=== PATIENT | female | born 1975 | race Caucasian/White ===

== ENCOUNTER 2018-02-24 09:10 | Outpatient (REF) | payer MEDICAID, SELFPAY ==
[2018-02-24 21:44] LABS: HCT 42.1 % (36.0-46.0); HGB 13.4 g/dL (12.0-15.5); Mean Corp. HGB Concentration 31.8 g/dL (32.0-36.0); Mean Corpuscular Hemoglobin 28.7 pg (27.0-33.0); Mean Corpuscular Volume 90.1 fL (80-95); Mean Platelet Volume 9.6 fL (8.0-11.0); Platelet Count 342 x1000/uL (130-400); RBC 4.67 m/cumm (4.00-5.20); RBC Distribution Width 13.6 % (11.7-14.6)
[2018-02-24 21:55] LABS: Hemoglobin A1C 5.8 % (4.5-6.2)
[2018-02-24 22:07] LABS: ALT 19 U/L (12-78); AST 17 U/L (15-37); Albumin 4.1 g/dL (3.4-5.0); Alkaline Phosphatase 42 U/L (46-116); BUN 12 mg/dL (7-18); Bilirubin, Total 0.3 mg/dL (0.2-1.0); CREATININE 0.87 mg/dL (0.55-1.02); Calcium 8.6 mg/dL (8.5-10.1); Chloride 104 mmol/L (98-107); Cholesterol 273 mg/dL (50-200); Glucose 100 mg/dL (70-100); HDL Cholesterol 77 mg/dL (40-60); LDL CHOLESTEROL 186 mg/dL (<100); Potassium 4.2 mmol/L (3.5-5.1); Sodium 141 mmol/L (136-145); TSH 1.03 uIU/mL (0.358-3.74); Total Protein 7.3 g/dL (6.4-8.2); Triglyceride 68 mg/dL (30-150)
== END 2018-02-24 09:30 ==
LOC: NCHCN 09:10
PROVIDERS: PCP Naturopath; Visit Provider Family Medicine
DX: E78.5 Hyperlipidemia, unspecified (principal); R73.09 Other abnormal glucose; E03.9 Hypothyroidism, unspecified; M25.50 Pain in unspecified joint
CPT/HCPCS: 80053; 80061; 83721; 85027; 83036; 84443

== ENCOUNTER 2018-05-06 12:36 | Outpatient (REF) | payer MEDICAID, SELFPAY ==
[2018-05-06 20:59] LABS: ALT 19 U/L (12-78); AST 13 U/L (15-37); Albumin 4.1 g/dL (3.4-5.0); Alkaline Phosphatase 41 U/L (46-116); Anion Gap 7.4 mmol/L (3-11); BUN 8 mg/dL (7-18); Bilirubin, Total 0.5 mg/dL (0.2-1.0); CO2 29.6 mmol/L (21.0-32.0); CREATININE 0.95 mg/dL (0.55-1.02); Calcium 9.5 mg/dL (8.5-10.1); Chloride 102 mmol/L (98-107); Glucose 96 mg/dL (70-100); Potassium 3.9 mmol/L (3.5-5.1); Sodium 139 mmol/L (136-145); Total Protein 7.3 g/dL (6.4-8.2)
[2018-05-08 08:02] LABS: Vitamin D 25 Total 31.1 ng/ml (30-100)
== END 2018-05-06 12:56 ==
LOC: LBN 12:36
PROVIDERS: PCP Naturopath; Visit Provider Internal Medicine Rheumatology
DX: E83.52 Hypercalcemia (principal)
CPT/HCPCS: 80053; 82306

== ENCOUNTER 2018-05-06 12:47 | Outpatient (REF) | payer MEDICAID, SELFPAY | END 2018-05-06 13:07 | LOC: NCHCN 12:47 | PROVIDERS: PCP Naturopath; Visit Provider Family Medicine | DX: N89.8 Other specified noninflammatory disorders of vagina (principal) | CPT/HCPCS: 87077; 87086; 87186; 87480; 87510; 87660 ==

== ENCOUNTER 2019-03-17 09:25 | Outpatient (REF) | payer MEDICAID, SELFPAY ==
[2019-03-17 22:01] LABS: HCT 39.6 % (36.0-46.0); HGB 12.5 g/dL (12.0-15.5); Mean Corp. HGB Concentration 31.6 g/dL (32.0-36.0); Mean Corpuscular Hemoglobin 28.3 pg (27.0-33.0); Mean Corpuscular Volume 89.8 fL (80-95); Mean Platelet Volume 9.6 fL (8.0-11.0); Platelet Count 357 x1000/uL (130-400); RBC 4.41 m/cumm (4.00-5.20); RBC Distribution Width 12.9 % (11.7-14.6); White Blood Cell Count 5.53 k/cumm (4.4-10.8)
[2019-03-17 22:07] LABS: Hemoglobin A1C 5.7 % (4.5-6.2)
[2019-03-17 22:13] LABS: ALT 24 U/L (14-59); AST 12 U/L (15-37); Alkaline Phosphatase 36 U/L (46-116); Anion Gap 8.1 mmol/L (3-11); BUN 10 mg/dL (7-18); Bilirubin, Total 0.2 mg/dL (0.2-1.0); CO2 27.9 mmol/L (21.0-32.0); CREATININE 0.79 mg/dL (0.55-1.02); Calcium 9.3 mg/dL (8.5-10.1); Calculated LDL 132 mg/dL; Chloride 105 mmol/L (98-107); Cholesterol 214 mg/dL (50-200); Glucose 103 mg/dL (70-100); HDL Cholesterol 70 mg/dL (40-60); Potassium 4.2 mmol/L (3.5-5.1); Sodium 141 mmol/L (136-145); TSH (W/Ref FT4) 0.66 uIU/mL (0.36-3.74); Total Protein 6.7 g/dL (6.4-8.2); Triglyceride 60 mg/dL (30-150)
== END 2019-03-17 09:45 ==
LOC: NCHCN 09:25
PROVIDERS: PCP Naturopath; Visit Provider Family Medicine
DX: R73.09 Other abnormal glucose (principal); E78.1 Pure hyperglyceridemia; M35.00 Sjogren syndrome, unspecified; E66.3 Overweight; Z00.00 Encounter for general adult medical examination without abnormal findings
CPT/HCPCS: 80053; 80061; 85027; 83036; 84443

== ENCOUNTER 2019-12-08 17:01 | Outpatient (REF) | payer MEDICAID, SELFPAY ==
[2019-12-08 21:37] LABS: Absolute Basophil Count 0.05 k/cumm (0.0-0.2); Absolute Eosinophil Count 0.14 k/cumm (0.0-0.7); Absolute Lymphocyte Count 1.72 k/cumm (1.2-3.4); Absolute Monocyte Count 0.32 k/cumm (0.11-0.7); Absolute Neutrophil Count 3.66 k/cumm (1.2-6.7); Basophils % 0.8; Eosinophils % 2.4; HCT 41.6 % (36.0-46.0); HGB 13.5 g/dL (12.0-15.5); Lymphocytes % 29.2; Mean Corp. HGB Concentration 32.5 g/dL (32.0-36.0); Mean Corpuscular Hemoglobin 28.4 pg (27.0-33.0); Mean Corpuscular Volume 87.4 fL (80-95); Mean Platelet Volume 9.7 fL (8.0-11.0); Monocytes % 5.4; Neutrophils % 62.2; Platelet Count 365 x1000/uL (130-400); RBC 4.76 m/cumm (4.00-5.20); White Blood Cell Count 5.89 k/cumm (4.4-10.8)
[2019-12-08 22:02] LABS: ALT 21 U/L (14-59); AST 14 U/L (15-37); Albumin 4.4 g/dL (3.4-5.0); Alkaline Phosphatase 38 U/L (46-116); Anion Gap 9.1 mmol/L (3-11); BUN 9 mg/dL (7-18); Bilirubin, Total 0.2 mg/dL (0.2-1.0); CO2 26.9 mmol/L (21.0-32.0); CREATININE 0.95 mg/dL (0.55-1.02); Calcium 9.4 mg/dL (8.5-10.1); Chloride 103 mmol/L (98-107); Creatine Kinase 49 U/L (26-192); Glucose 98 mg/dL (74-106); LDH 130 U/L (81-234); Potassium 4.1 mmol/L (3.5-5.1); Sodium 139 mmol/L (136-145); Total Protein 7.4 g/dL (6.4-8.2)
[2019-12-08 22:03] LABS: C-Reactive Protein < 0.05 mg/dL (0.0-0.3)
[2019-12-08 22:28] LABS: ESR 14 mm/hr (0-20)
== END 2019-12-08 17:21 ==
LOC: LBN 17:01
PROVIDERS: PCP Naturopath; Visit Provider Nurse Practitioner
DX: M35.00 Sjogren syndrome, unspecified (principal); Q79.60 Ehlers-Danlos syndrome, unspecified; Z79.899 Other long term (current) drug therapy; M19.90 Unspecified osteoarthritis, unspecified site
CPT/HCPCS: 80053; 82550; 85652; 83615; 85025; 86140

== ENCOUNTER 2020-02-05 20:13 | Outpatient (REF) | payer MEDICAID, SELFPAY ==
[2020-02-05 19:53] LABS: Abs Immature Grans 0.01 10^3/uL (0.0-0.06); Absolute Basophil Count 0.08 10^3/uL (0.0-0.2); Absolute Eosinophil Count 0.21 10^3/uL (0.0-0.7); Absolute Lymphocyte Count 1.67 10^3/uL (1.2-3.4); Absolute Monocyte Count 0.45 10^3/uL (0.1-0.8); Absolute Neutrophil Count 4.17 10^3/uL (1.2-6.7); Basophils % 1.2; Eosinophils % 3.2; HGB 12.9 g/dL (11.2-15.7); Immature Grans % 0.2; Lymphocytes % 25.3; MCH 28.5 pg (27.0-33.0); MCHC 32.3 % (32.0-36.0); MCV 88.5 fL (80-95); MPV 9.8 fL (8.0-11.0); Monocytes % 6.8; Neutrophils % 63.3; Nucleated RBC 0 %; Platelet Count 309 10^3/uL (130-400); RBC 4.52 10^6/uL (3.93-5.22); RDW 12.7 % (11.7-14.6); RDW-SD 41.2 fL; WBC 6.59 10^3/uL (4.4-10.8)
[2020-02-05 20:29] LABS: ALT 31 U/L (14-59); AST 15 U/L (15-37); Albumin 4.2 g/dL (3.4-5.0); Alkaline Phosphatase 38 U/L (46-116); Anion Gap 6.1 mmol/L (3-11); BUN 16 mg/dL (7-18); Bilirubin, Total 0.4 mg/dL (0.2-1.0); CO2 28.9 mmol/L (21.0-32.0); CREATININE 0.94 mg/dL (0.55-1.02); Calcium 9.1 mg/dL (8.5-10.1); Calculated LDL 160 mg/dL (<100); Chloride 102 mmol/L (98-107); Cholesterol 252 mg/dL (<200); Glucose 94 mg/dL (74-106); HDL Cholesterol 60 mg/dL (40-60); Potassium 3.8 mmol/L (3.5-5.1); Sodium 137 mmol/L (136-145); TSH 0.89 uIU/mL (0.36-3.74); Total Protein 7.2 g/dL (6.4-8.2); Triglyceride 161 mg/dL (<150)
[2020-02-05 20:46] LABS: Hemoglobin A1C 5.5 % (<5.7)
== END 2020-02-05 20:33 ==
LOC: NCHCN 20:13
PROVIDERS: PCP Naturopath; Visit Provider Family Medicine
DX: R73.03 Prediabetes (principal); E03.9 Hypothyroidism, unspecified; M35.00 Sjogren syndrome, unspecified
CPT/HCPCS: 80053; 80061; 83036; 84443; 85025

== ENCOUNTER 2021-04-10 03:32 | Outpatient (CLI) | payer MEDICAID, SELFPAY ==
[2021-04-10 10:15] LABS: Abs Immature Grans 0.02 10^3/uL (0.0-0.06); Absolute Basophil Count 0.02 10^3/uL (0.0-0.2); Absolute Eosinophil Count 0.16 10^3/uL (0.0-0.7); Absolute Lymphocyte Count 1.45 10^3/uL (1.2-3.4); Absolute Monocyte Count 0.31 10^3/uL (0.1-0.8); Absolute Neutrophil Count 4.21 10^3/uL (1.2-6.7); Basophils % 0.3; Eosinophils % 2.6; HCT 41.3 % (36.0-46.0); HGB 13.2 g/dL (11.2-15.7); Immature Grans % 0.3; Lymphocytes % 23.5; MCH 27.4 pg (27.0-33.0); MCV 85.9 fL (80-95); MPV 9.1 fL (8.0-11.0); Neutrophils % 68.3; Nucleated RBC 0 %; Platelet Count 348 10^3/uL (130-400); RBC 4.81 10^6/uL (3.93-5.22); RDW 12.7 % (11.7-14.6); RDW-SD 39.8 fL; WBC 6.17 10^3/uL (4.4-10.8)
[2021-04-10 10:45] LABS: Bilirubin Negative (Negative); Blood Negative (Negative); Clarity Clear (Clear); Glucose Negative (Negative); Ketones Negative (Negative); Leukocyte Esterase Negative (Negative); Nitrite Negative (Negative); Specific Gravity >= 1.030 (1.005-1.025); Urobilinogen 0.2 EU/dL (Up TO 0.2)
[2021-04-10 12:52] LABS: BUN 14 mg/dL (7-18); CREATININE 0.9 mg/dL (0.55-1.02); Calcium 9.2 mg/dL (8.5-10.1); Cholesterol 288 mg/dL (<200); Glucose 105 mg/dL (74-106)
[2021-04-10 12:53] LABS: ALT 22 U/L (14-59); AST 12 U/L (15-37); Albumin 4.2 g/dL (3.4-5.0); Alkaline Phosphatase 57 U/L (46-116); Anion Gap 10.8 mmol/L (3-11); Bilirubin, Total 0.3 mg/dL (0.2-1.0); CO2 26.2 mmol/L (21.0-32.0); Calculated LDL 212 mg/dL (<100); Chloride 103 mmol/L (98-107); HDL Cholesterol 56 mg/dL (40-60); Potassium 4.3 mmol/L (3.5-5.1); Sodium 140 mmol/L (136-145); Total Protein 7.4 g/dL (6.4-8.2); Triglyceride 100 mg/dL (<150)
[2021-04-11 13:56] LABS: Albumin 63.1 % (55.8-66.1); Total Protein 7.5 g/dL (6.3-8.2)
[2021-04-11 14:40] LABS: Albumin, Urine % 19.8 %; Globulins, Urine % 80.2 %; Immunotyping, Urine (See Note); Total Protein Urine <5 mg/dL (See Note)
== END 2021-04-10 03:33 | disposition home or self-care (01) ==
LOC: LBO 03:32
PROVIDERS: PCP Naturopath; Visit Provider Nurse Practitioner
DX: M35.00 Sjogren syndrome, unspecified (principal); Z13.220 Encounter for screening for lipoid disorders
CPT/HCPCS: 36415; 80053; 80061; 84156; 84166; 86335; 81003; 83036; 84165; 85025

== ENCOUNTER 2022-01-31 04:28 | Outpatient (CLI) | payer MEDICAID, SELFPAY ==
[2022-01-31 13:13] LABS: ESR 22 mm/hr (0-20)
[2022-01-31 13:14] LABS: HCT 42.6 % (36.0-46.0); HGB 13.7 g/dL (11.2-15.7); MCH 28.1 pg (27.0-33.0); MCHC 32.2 % (32.0-36.0); MCV 87 fL (80-95); MPV 9.2 fL (8.0-11.0); Platelet Count 358 10^3/uL (130-400); RBC 4.88 10^6/uL (3.93-5.22); RDW-SD 41.5 fL; WBC 9.68 10^3/uL (4.4-10.8)
[2022-01-31 13:55] LABS: ALT 20 U/L (14-59); AST 16 U/L (15-37); Albumin 4.6 g/dL (3.4-5.0); Alkaline Phosphatase 72 U/L (46-116); Anion Gap 11.9 mmol/L (3-11); BUN 8 mg/dL (7-18); Bilirubin, Total 0.4 mg/dL (0.2-1.0); C-Reactive Protein 0.07 mg/dL (0.0-0.3); CO2 26.1 mmol/L (21.0-32.0); CREATININE 0.9 mg/dL (0.55-1.02); Calcium 9.7 mg/dL (8.5-10.1); Chloride 101 mmol/L (98-107); Estimated GFR 78.86 (mL/min/1.73m2); FREE T4 0.67 ng/dL (0.76-1.46); Glucose 131 mg/dL (74-106); LDH 136 U/L (81-234); Potassium 3.7 mmol/L (3.5-5.1); Sodium 139 mmol/L (136-145); TSH 0.56 uIU/mL (0.36-3.74); Total Protein 8.7 g/dL (6.4-8.2)
[2022-01-31 14:07] LABS: Iron 101 ug/dL (50-170); Total Iron Binding Capacity 403 ug/dL (250-450); Transferrin Sat 25 % (15-50)
[2022-01-31 14:21] LABS: Calculated LDL 179 mg/dL (<100); Cholesterol 288 mg/dL (<200); Ferritin 50 ng/mL (8-252); HDL Cholesterol 71 mg/dL (40-60); T4 6.5 ug/mL (4.7-13.3); Triglyceride 191 mg/dL (<150)
[2022-01-31 22:47] LABS: T3,Free 3.4 pg/mL (2.8-5.3)
[2022-02-01 05:40] LABS: Vitamin D 25 Total 53.4 ng/mL (30-100)
[2022-02-01 09:01] LABS: Thyroperoxidase Antibody <28 U/mL (<=60)
[2022-02-01 11:58] LABS: Kappa Free Light Chain 0.89 mg/dL (0.33-1.94); Lambda Free Light Chain 1.29 mg/dL (0.57-2.63)
[2022-02-01 13:15] LABS: Thyrotropin Receptor Ab <1.10 IU/L
[2022-02-01 14:54] LABS: Albumin 62.6 % (55.8-66.1); Albumin g/dL 5.1 g/dL (3.6-5.2); Total Protein 8.2 g/dL (6.3-8.2)
[2022-02-01 15:39] LABS: Leukemia/Lymphoma by FC (Blood (See below)
[2022-02-01 16:26] LABS: Chromogranin A 65 ng/mL (<93)
[2022-02-02 14:57] LABS: Albumin, Urine % 6.9 %; Albumin, Urine mg/dL 1 mg/dL; Globulins, Urine % 93.1 %; Globulins, Urine mg/dL 9 mg/dL; Immunotyping, Urine (See Note); Total Protein Urine 10 mg/dL (See Note)
[2022-02-07 11:07] LABS: Histamine Plasma 0.66 ng/mL (0-1.0)
== END 2022-01-31 04:29 | disposition home or self-care (01) ==
LOC: LBO 04:28
PROVIDERS: PCP Naturopath; Visit Provider Family Medicine
DX: E03.9 Hypothyroidism, unspecified (principal); E55.9 Vitamin D deficiency, unspecified; D89.40 Mast cell activation, unspecified; Z51.81 Encounter for therapeutic drug level monitoring; R00.2 Palpitations
CPT/HCPCS: 36415; 80053; 80061; 82306; 83520; 84150; 84156; 84166; 85027; 85652; 86335; 88185; 82728; 82746; 83036; 83088; 83519; 83540; 83550; 83615; 83735; 83883; 84165; 84235; 84436; 84439; 84443; 84481; 86140; 86316; 86376; 88184; 88189